=== PATIENT | female | born 2005 | race Two or more races ===

== ENCOUNTER 2025-03-05 20:00 | Emergency (ER) | payer MEDICAID, SELFPAY ==
[2025-03-05 20:02] VITALS: PULSE 106; RESP 18; O2SAT 93; BMI 19.3
[2025-03-05 22:15] VITALS: BP 113/75; PULSE 75; RESP 16; TEMP 36.6; O2SAT 98
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
== END 2025-03-06 00:56 | disposition home or self-care (01) ==
PROVIDERS: Emergency Provider Emergency Medicine; PCP Family Medicine
DX: M54.2 Cervicalgia (principal); R51.9 Headache, unspecified; M25.551 Pain in right hip
CPT/HCPCS: 70450; 72125; 81001; 81025; 99284